=== PATIENT | male | born 1970 | race Caucasian/White ===

== ENCOUNTER 2024-03-17 12:27 | Outpatient (CLI) | payer OTHER, SELFPAY ==
--- NOTE | 2024-03-17 12:45 | XR_ITS ---
WS: [id number] Cervical spine, 4 views, 03/17/2024 Clinical Data: DEGENERATIVE JOINT DZ Comparison: None. Findings: No compression fractures are seen. The disc heights are normal. There is no prevertebral so ft tissue swelling. The odontoid is unremarkable. The soft tissues of the neck and the lung apices ar e normal. There is minimal calcification of the anterior longitudinal ligament at C6-C7 XR/XR cervical spine 3V* [id number] Impression: Negative cervical spine.
--- NOTE | 2024-03-17 12:45 | XR_ITS ---
WS: [id number] Lumbar spine, 3 views, 03/17/2024 Clinical Data: DEGERATIVE JOINT DZ Comparison: None. Findings: No compression fractures or subluxation is seen. No disc space narrowing is seen. The transverse proc esses and SI joints are normal. XR/XR lumbar spine 2-3V* [id number] Impression: Negative lumbar spine.
== END 2024-03-17 12:28 | disposition home or self-care (01) ==
PROVIDERS: Visit Provider Chiropractor
DX: M25.9 Joint disorder, unspecified (principal)
CPT/HCPCS: 72040; 72100

== ENCOUNTER 2024-06-22 10:50 | Outpatient (CLI) | payer OTHER, SELFPAY ==
[2024-06-22 11:07] LABS: Bilirubin Urine Negative (Negative); Blood Urine Negative (Negative); Glucose Urine UA Negative (Normal); Ketones Urine Negative (Negative); Leukocyte Esterase Urine Negative (Negative); Nitrate Urine Negative (Negative); Protein Urine Negative (Negative); Urine Appearance Clear (CLEAR); Urine Color Yellow (Yellow); pH Urine 5.5 (5-7)
[2024-06-22 11:09] LABS: Add Urine Microscopic? YES; Bacteria Urine None Seen /hpf; RBC Urine 0-2 /hpf (0-2); Squamous Epithelial Cell Urine 0-5 /hpf (0-5); WBC Urine 0-5 /hpf (0-5)
[2024-06-22 11:23] LABS: Alanine Aminotransferase 8 U/L (0-41); Albumin Level 4.5 g/dL (3.5-5.2); Alkaline Phosphatase 71 U/L (40-130); Anion Gap 14.4 (5-19); Aspartate Amino Transferase 10 U/L (0-40); Blood Urea Nitrogen 15 mg/dL (6-20); Carbon Dioxide 27 mmol/L (22-29); Chloride 100 mmol/L (98-107); Globulin 2.3 g/dL (1.3-4.6); Glucose 153 mg/dL (65-115); Osmolality Calculated 288 mOsm/kg (285-295); Potassium 4.4 mmol/L (3.5-5.1); Sodium 137 mmol/L (136-145); Total Bilirubin 1.4 mg/dL (0.15-1.2); Total Protein 6.8 g/dL (6.6-8.7)
== END 2024-06-22 10:51 | disposition home or self-care (01) ==
LOC: LAB 10:51
PROVIDERS: Visit Provider Chiropractor
DX: E11.9 Type 2 diabetes mellitus without complications (principal)
CPT/HCPCS: 80053; 81001